=== PATIENT | female | born 1985 | race Two or more races ===

== ENCOUNTER 2020-05-22 10:45 | Inpatient (IN) | payer OTHER ==
[~2020-05-22] VITALS: Ht 170.2 cm; Wt 84.8 kg
[2020-05-22] MEDS ORDERED: ATABEX DHA 200200 MG PO (15:03)
[2020-05-23] MEDS ORDERED: PRENATAL TABLE1 EAC1 PO (11:58)
[2020-05-26] MEDS ORDERED: KETO10TA2 PO (06:50)
[2020-05-26] MEDS ORDERED: OXYC1TAB9 PO (06:50)
== END 2020-05-26 12:50 | disposition home or self-care (01) | DRG 787 ==
LOC: LDR 05-23 10:45 → O/R 05-23 14:27 → SURG-SUITE 05-23 16:04 → LDR 05-24 10:45 → SURG-SUITE 05-26 12:50
PROVIDERS: ADMIT Obstetrics & Gynecology; ATTEND Obstetrics & Gynecology
PROC: 0UB90ZX Excision of Uterus, Open Approach, Diagnostic (ICD-10-PCS; 2020-05-23)
PROC: 4A1HXFZ Monitoring of Products of Conception, Cardiac Rhythm, External Approach (ICD-10-PCS; 2020-05-23)
PROC: 10D00Z1 Extraction of Products of Conception, Low, Open Approach (ICD-10-PCS; principal; 2020-05-23 12:30)
DX: O64.1XX0 Obstructed labor due to breech presentation, not applicable or unspecified (principal); O41.03X0 Oligohydramnios, third trimester, not applicable or unspecified; O34.13 Maternal care for benign tumor of corpus uteri, third trimester; Z3A.38 38 weeks gestation of pregnancy; Z37.0 Single live birth; Z20.828 Contact with and (suspected) exposure to other viral communicable diseases

== ENCOUNTER 2024-01-28 09:45 | Outpatient (CLI) | payer OTHER ==
[~2024-01-28 09:45] MED LIST: ATABEX DHA 200200 MG PO; KETO10TA2 PO; OXYC1TAB9 PO; PRENATAL TABLE1 EAC1 PO
== END 2024-01-28 12:33 | disposition home or self-care (01) ==
LOC: NST 09:45
PROVIDERS: ATTEND Obstetrics & Gynecology Maternal & Fetal Medicine
DX: Z34.83 Encounter for supervision of other normal pregnancy, third trimester (principal)

== ENCOUNTER 2024-02-23 08:15 | Inpatient (IN) | payer OTHER ==
[~2024-02-23] VITALS: Ht 170.2 cm; Wt 3.6 kg
[2024-02-23 10:41] LABS: HEMATOCRIT 31.3 % (36.0-45.00); HEMOGLOBIN 10.3 g/dL (12.0-15.00); MEAN CELL VOLUME 85.8 fL (80.00-100.00); MEAN CORPUSCULAR HEMOGLOBIN 28.3 pg (27.00-32.0); PLATELET COUNT 214 K/uL (150-450); RED BLOOD COUNT 3.65 M/uL (4.00-6.00); RED CELL DISTRIBUTION WIDTH 13.9 % (11.5-14.5)
[2024-02-23 11:04] LABS: INR < 0.93; PARTIAL THROMBOPLASTIN TIME 25.1 SECONDS (22.0-34.0); PROTHROMBIN TIME 9.8 SECONDS (9.0-11.5)
[2024-02-23 11:13] LABS: ALBUMIN 2.6 gm/dL (3.4-5.0); BILIRUBIN TOTAL 0.29 mg/dL (0.3-1.2); CALCIUM 9.2 mg/dL (8.5-10.1); CREATININE SERUM 0.73 mg/dL (0.55-1.02); GFR 90.21; GLOBULINA 3.3 G/DL (2.4-3.5); POTASSIUM 4.39 mEq/L (3.5-5.1); TOTAL PROTEIN 5.9 gm/dL (6.4-8.2)
[2024-02-25] MEDS ORDERED: CEFAZOLIN SODIUM 1,000 MG VIAL ONE (08:57)
[2024-02-25] MEDS ORDERED: OXYTOCIN 10 UNITS/ML VIAL IV ONE (09:15)
[2024-02-25] MEDS ORDERED: CITRIC ACID/SODIUM CITRATE 30 ML BLIST.PACK PO ONE (09:15)
[2024-02-25] MEDS ORDERED: ERYTHROMYCIN BASE 1 GM TUBE OP ONE (09:15)
[2024-02-25] MEDS ORDERED: MORPHINE SULFATE 4 MG/ML VIAL IV ONE (10:55)
[2024-02-25] MEDS ORDERED: KETOROLAC TROMETHAMINE 30 MG VIAL ONE (11:20)
[2024-02-25] MEDS ORDERED: KETOROLAC TROMETHAMINE 30 MG VIAL IM ONE (11:25)
[2024-02-25] MEDS ORDERED: OXYTOCIN 1,000 ML IV SCH (12:00)
[2024-02-25] MEDS ORDERED: OXYTOCIN 20 UNITS in RINGERS SOLUTION,LACTATED 1,000 ML IV SCH (14:30)
[2024-02-25] MEDS ORDERED: RINGERS SOLUTION,LACTATED 1,000 ML IV SCH (14:30)
[2024-02-25] MEDS ORDERED: MEPERIDINE HCL/PF 25 MG/ML VIAL IM PRN (14:45)
[2024-02-25] MEDS ORDERED: PROMETHAZINE HCL 25 MG/ML AMPUL IM PRN (14:45)
[2024-02-25 14:53] LABS: HEMATOCRIT 35.3 % (36.0-45.00); HEMOGLOBIN 11.3 g/dL (12.0-15.00); MEAN CELL VOLUME 85.7 fL (80.00-100.00); MEAN CORPUSCULAR HEMOGLOBIN 27.5 pg (27.00-32.0); MEAN CORPUSCULAR HGB CONC 32.1 g/dl (32.0-36.0); PLATELET COUNT 215 K/uL (150-450); RED BLOOD COUNT 4.12 M/uL (4.00-6.00); RED CELL DISTRIBUTION WIDTH 14.3 % (11.5-14.5)
[2024-02-25] MEDS ORDERED: SIMETHICONE 125 MG CAPSULE PO SCH (17:00)
[2024-02-25] MEDS ORDERED: CEFAZOLIN SODIUM 1,000 MG VIAL IV SCH (17:00)
[2024-02-25] MEDS ORDERED: KETOROLAC TROMETHAMINE 10 MG TABLET PO SCH (18:00)
[2024-02-26 07:04] LABS: HEMATOCRIT 29.3 % (36.0-45.00); HEMOGLOBIN 9.6 g/dL (12.0-15.00); MEAN CELL VOLUME 84.8 fL (80.00-100.00); MEAN CORPUSCULAR HEMOGLOBIN 27.9 pg (27.00-32.0); MEAN CORPUSCULAR HGB CONC 32.9 g/dl (32.0-36.0); PLATELET COUNT 174 K/uL (150-450); RED BLOOD COUNT 3.45 M/uL (4.00-6.00); RED CELL DISTRIBUTION WIDTH 14.3 % (11.5-14.5)
[2024-02-26] MEDS ORDERED: OxyCODONE HCL/APAP UD (PERCOCET) PO SCH (09:00)
== END 2024-02-28 12:02 | disposition home or self-care (01) | DRG 788 ==
LOC: O/R 02-25 06:00 → OB/GYN 02-25 06:00
PROVIDERS: ADMIT Obstetrics & Gynecology Maternal & Fetal Medicine; ATTEND Obstetrics & Gynecology Maternal & Fetal Medicine
PROC: 4A1HXCZ Monitoring of Products of Conception, Cardiac Rate, External Approach (ICD-10-PCS; 2024-02-25)
PROC: 10D00Z1 Extraction of Products of Conception, Low, Open Approach (ICD-10-PCS; principal; 2024-02-25 07:00)
DX: O32.1XX0 Maternal care for breech presentation, not applicable or unspecified (principal); O35.8XX0 Maternal care for other (suspected) fetal abnormality and damage, not applicable or unspecified; O34.211 Maternal care for low transverse scar from previous cesarean delivery; Z3A.38 38 weeks gestation of pregnancy; Z37.0 Single live birth; Z20.822 Contact with and (suspected) exposure to COVID-19